=== PATIENT | male | born 1960 | race Two or more races ===

== ENCOUNTER 2018-12-03 08:18 | Outpatient (CLI) | payer BC, OTHER ==
[~2018-12-03 08:18] MED LIST: AMOX1TAB PO
[2018-12-03 09:41] LABS: APPEARANCE,URINE SL CLOUDY (CLEAR); BASOPHILS % (AUTO) 0.7 % (0.0-2.0); BILIRUBIN,URINE NEGATIVE (NEGATIVE); BLOOD, URINE 1+ Ery/uL (NEGATIVE); COLOR,URINE YELLOW (YELLOW); EOSINOPHILS % (AUTO) 1.9 % (0.0-6.0); HEMATOCRIT 47 % (39-51); HEMOGLOBIN 16.2 g/dL (13.5-17.5); KETONES,URINE NEGATIVE (NEGATIVE); LEUKOCYTE ESTERASE ,URINE NEGATIVE (NEGATIVE); LYMPHOCYTES # (AUTO) 1.1 /CMM (0.8-4.8); LYMPHOCYTES % (AUTO) 19.6 % (20.0-44.0); MEAN CORPUSCULAR HGB CONC 35 g/dl (31.0-36.0); MEAN CORPUSCULAR VOLUME 87 fL (80-96); MONOCYTES # (AUTO) 0.3 /CMM (0.1-1.30); MONOCYTES % (AUTO) 5.1 % (2.0-12.0); NEUTROPHILS # (AUTO) 4.2 /CMM (1.8-8.9); NEUTROPHILS % (AUTO) 72.7 % (43.0-81.0); NITRITE, URINE NEGATIVE (NEGATIVE); PLATELET COUNT (AUTO) 214 /CMM (150-450); PROTEIN,URINE TRACE mg/dl (NEGATIVE); RED BLOOD CELL COUNT(AUTO) 5.42 MIL/uL (4.5-6.0); UGLUCOSE NEGATIVE (NEGATIVE); UROBILINOGEN,URINE 0.2 EU/dL (0.2); WHITE BLOOD COUNT (AUTO) 5.8 K/uL (4.3-11.0)
[2018-12-03 09:52] LABS: ALBUMIN 4.5 g/dL (3.4-5.0); BACTERIA,URINE Rare /HPF (None Seen); BILIRUBIN,TOTAL 0.7 mg/dL (0.2-1.0); CALCIUM, SERUM 8.9 mg/dL (8.5-10.1); CREATININE 1.1 mg/dL (0.6-1.3); POTASSIUM 3.6 mmol/L (3.5-5.1); SQUAMOUS EPITHELIAL CELL,UR Few /HPF (None Seen); TOTAL PROTEIN, SERUM 7.8 g/dL (6.4-8.2); WBC,URINE 0-2 /HPF (0-3)
[2018-12-03 10:05] LABS: FREE T4 (FREE THYROXINE) 1.15 ng/dL (0.76-1.46); PROSTATE SPECIFIC ANTIGEN SCR 7.32 ng/mL (0.00-4.00); THYROID STIMULATING HORMONE 1.282 uIU/mL (0.358-3.74); URIC ACID 6.4 mg/dL (2.6-7.2)
[2018-12-04 08:10] LABS: *FOLIC ACID 7.8 ng/mL (>3.0)
== END 2018-12-03 23:59 | disposition home or self-care (01) ==
LOC: LAB 08:18 → MRI 23:59
PROVIDERS: ATTEND Legal Medicine
DX: Z00.00 Encounter for general adult medical examination without abnormal findings (principal); M19.012 Primary osteoarthritis, left shoulder
CPT/HCPCS: 36415; 73221-TC; 80053-TC; 80061-TC; 81000-TC; 82306; 83540-TC; 84153-TC; 84402; 84403; 84439-TC; 84443-TC; 84550-TC; 85025-TC